=== PATIENT | female | born 1950 | race Caucasian/White ===

== ENCOUNTER → 2017-12-07 | Outpatient (CLI) | payer MEDICARE ==
[~2017-12-07] MED LIST: Acetaminophen1 EAC2 PO; Ambien5 MG PO; CALCAVITD PO; CRANBERRY250 MG PO; FISH1000 PO; GRAPE SEED 501 EACH PO; Milk Thistle175 MG PO; PROM25 PO; VENL37.5ER PO; Vitamin C1000 M1 PO; Vitamin E100 UNIT PO; ZOLP5 PO; [UNRECOGNIZED DRUG - REMARK]
== END | disposition home or self-care (01) ==
LOC: PLD 08:21 → LAB SHORT 08:21
DX: D04.5 Carcinoma in situ of skin of trunk (principal); D48.5 Neoplasm of uncertain behavior of skin
CPT/HCPCS: 88305

== ENCOUNTER → 2019-10-10 | Outpatient (CLI) | payer MEDICARE ==
[2019-10-12 15:07] LABS: HPV 16 Negative (Negative); HPV 18 Negative (Negative); HPV OTHER HR TYPES Negative (Negative)
== END | disposition home or self-care (01) ==
LOC: LAB SHORT 13:55 → LAB 13:55
PROVIDERS: Nurse Practitioner Women's Health
DX: Z12.4 Encounter for screening for malignant neoplasm of cervix (principal); R87.810 Cervical high risk human papillomavirus (HPV) DNA test positive; Z91.89 Other specified personal risk factors, not elsewhere classified
CPT/HCPCS: 87624; G0123

== ENCOUNTER 2020-09-24 11:21 | Day surgery (SDC) | payer MEDICARE ==
[~2020-09-24] VITALS: Ht 162.6 cm; Wt 73.9 kg
[2020-09-24] MEDS ORDERED: XARELTO20 MG (12:53)
[2020-09-24] MEDS ORDERED: TURMERIC ROOT5000 GM (12:54)
[2020-09-24] MEDS ORDERED: VENL150ER (12:57)
[2020-09-24] MEDS ORDERED: FURO20 (12:59)
[2020-09-24] MEDS ORDERED: PANT20 (12:59)
[2020-09-24] MEDS ORDERED: ATOR20 (12:59)
[2020-09-24] MEDS ORDERED: Lisinopril10 MG (12:59)
[2020-09-24] MEDS ORDERED: DILT30 (12:59)
[2020-09-24] MEDS ORDERED: Milk Thistle175 M1 (13:00)
[2020-09-24] MEDS ORDERED: BUPR75 (13:00)
[2020-09-24] MEDS ORDERED: FAMO10 (13:00)
[2020-09-24] MEDS ORDERED: MECL12.5 (13:00)
== END 2020-09-24 14:08 | disposition home or self-care (01) ==
LOC: ORSCSDS 11:21
PROVIDERS: Surgery
PROC: 0DBM8ZX Excision of Descending Colon, Via Natural or Artificial Opening Endoscopic, Diagnostic (ICD-10-PCS; principal; 2020-09-24 13:00)
DX: Z12.11 Encounter for screening for malignant neoplasm of colon (principal); Z86.010 Personal history of colon polyps; D12.4 Benign neoplasm of descending colon; K57.30 Diverticulosis of large intestine without perforation or abscess without bleeding; Z95.0 Presence of cardiac pacemaker; I10 Essential (primary) hypertension; E78.5 Hyperlipidemia, unspecified; Z79.01 Long term (current) use of anticoagulants; Z79.899 Other long term (current) drug therapy
CPT/HCPCS: 88305; J2704; J7120

== ENCOUNTER 2021-01-16 07:44 | Day surgery (SDC) | payer MEDICARE, SELFPAY ==
[~2021-01-16] VITALS: Ht 152.4 cm; Wt 84.4 kg
[~2021-01-16 07:44] MED LIST changes: +ATOR20; +ATORVASTATIN CA40 M1 PO; +BUPR150ER PO; +BUPR75; +CARTIA XT120 M1 PO; +CARTIA XT120 MG PO; +DILT30; +FAMO10; +FAMO20 PO; +FURO20; +FURO20 PO; +Lisinopril10 MG; +MECL12.5; +MECL25 PO; +Milk Thistle175 M1; +Milk Thistle175 M1 PO; +PANT20; +PANT20 PO; +Prinivil10 MG PO; +TURMERIC ROOT5000 GM; +VENL150ER; +VENL150ER PO; +VITAMIN D5000 UNIT PO; +XARELTO20 MG; +XARELTO20 MG PO
== END 2021-01-16 09:48 | disposition home or self-care (01) ==
LOC: ORSCSDS 07:44
PROVIDERS: Surgery
PROC: 0DB68ZX Excision of Stomach, Via Natural or Artificial Opening Endoscopic, Diagnostic (ICD-10-PCS; principal; 2021-01-16 09:00)
PROC: 0DB48ZX Excision of Esophagogastric Junction, Via Natural or Artificial Opening Endoscopic, Diagnostic (ICD-10-PCS; principal; 2021-01-16 09:00)
DX: K21.9 Gastro-esophageal reflux disease without esophagitis (principal); R10.11 Right upper quadrant pain; K44.9 Diaphragmatic hernia without obstruction or gangrene; E78.5 Hyperlipidemia, unspecified; I10 Essential (primary) hypertension; I48.0 Paroxysmal atrial fibrillation; E66.9 Obesity, unspecified; Z68.32 Body mass index [BMI] 32.0-32.9, adult; Z79.01 Long term (current) use of anticoagulants; Z79.899 Other long term (current) drug therapy
CPT/HCPCS: 88305; 88342; J2704; J7120

== ENCOUNTER → 2023-05-14 | Outpatient (CLI) | payer MEDICARE ==
[2023-05-14 15:44] LABS: BASOPHILS ABSOLUTE AUTO 0.04 K/mm3 (0.00-0.23); BASOPHILS PERCENT AUTO 1 % (0-2); EOSINOPHILS PERCENT AUTO 4 % (0-6); Hematocrit 39.3 % (33.0-51.0); Hemoglobin 13.6 g/dL (11.5-16.0); IMMATURE GRAN ABSOLUTE AUTO 0.01 K/mm3 (0.00-0.10); IMMATURE GRAN PERCENT AUTO 0 % (0-1); LYMPHOCYTES ABSOLUTE AUTO 1.74 K/mm3 (0.84-5.20); LYMPHOCYTES PERCENT AUTO 32 % (21-46); MONOCYTES ABSOLUTE AUTO 0.49 K/mm3 (0.16-1.47); MONOCYTES PERCENT AUTO 9 % (4-13); Mean Corpuscular HGB 30.4 pg (26.0-34.0); Mean Corpuscular HGB Conc 34.6 g/dL (31.5-36.5); Mean Corpuscular Volume 88 fL (80-100); Mean Platelet Volume 9.1 fL (9.1-12.4); NEUTROPHILS ABSOLUTE AUTO 2.95 K/mm3 (1.96-9.15); NEUTROPHILS PERCENT AUTO 54 % (41-73); Platelet Count 279 K/mm3 (150-400); RDW Coefficient Variation 13.5 % (11.7-14.2); RDW Standard Deviation 43.8 fL (35.1-46.3); Red Blood Cell Count 4.47 M/mm3 (3.80-5.20); White Blood Cell Count 5.43 K/mm3 (4.00-11.30)
[2023-05-14 15:55] LABS: Albumin, Blood 3.8 g/dL (3.4-5.0); Bilirubin, Total 0.2 mg/dL (0.1-1.0); Bun/Creatinine Ratio 19.5 (12.0-20.0); Calcium, Blood 9.5 mg/dL (8.5-10.1); Creatinine, Blood 1.33 mg/dL (0.40-1.00); Globulin, Blood 3.7 g/dL (2.2-4.0); Potassium, Blood 4.3 mmol/L (3.5-5.5); Total Protein, Blood 7.5 g/dL (6.4-8.2)
== END | disposition home or self-care (01) ==
LOC: LAB SHORT 15:39 → LAB 15:39
PROVIDERS: Chiropractor
DX: I48.91 Unspecified atrial fibrillation (principal)
CPT/HCPCS: 80053; 83880; 84484; 85025

== ENCOUNTER 2024-11-23 18:43 | Emergency (ER) | payer MEDICARE ==
[~2024-11-23] VITALS: Ht 162.6 cm; Wt 78.0 kg
[2024-11-23 18:56] VITALS: BP 109/81
== END 2024-11-23 22:53 | disposition home or self-care (01) ==
LOC: ER 18:43
DX: R06.02 Shortness of breath (principal); I10 Essential (primary) hypertension; K21.9 Gastro-esophageal reflux disease without esophagitis; Z95.0 Presence of cardiac pacemaker; Z88.8 Allergy status to other drugs, medicaments and biological substances; Z91.048 Other nonmedicinal substance allergy status; Z79.01 Long term (current) use of anticoagulants; Z79.899 Other long term (current) drug therapy
CPT/HCPCS: 71260; 80053; 83880; 84484; 85025; 85379; 93005; 93010; 99283-25; Q9967

== ENCOUNTER → 2024-11-23 | Outpatient (CLI) | payer MEDICARE ==
[2024-11-23 17:25] LABS: BASOPHILS ABSOLUTE AUTO 0.05 K/mm3 (0.00-0.23); BASOPHILS PERCENT AUTO 1 % (0-2); EOSINOPHILS ABSOLUTE AUTO 0.16 K/mm3 (0.00-0.68); EOSINOPHILS PERCENT AUTO 2 % (0-6); Hematocrit 37.1 % (33.0-51.0); Hemoglobin 11.5 g/dL (11.5-16.0); IMMATURE GRAN ABSOLUTE AUTO 0.01 K/mm3 (0.00-0.10); IMMATURE GRAN PERCENT AUTO 0 % (0-1); LYMPHOCYTES PERCENT AUTO 24 % (21-46); MONOCYTES ABSOLUTE AUTO 0.46 K/mm3 (0.16-1.47); MONOCYTES PERCENT AUTO 7 % (4-13); Mean Corpuscular HGB 23.2 pg (26.0-34.0); Mean Corpuscular Volume 75 fL (80-100); Mean Platelet Volume 8.9 fL (9.1-12.4); NEUTROPHILS ABSOLUTE AUTO 4.31 K/mm3 (1.96-9.15); NEUTROPHILS PERCENT AUTO 65 % (41-73); Platelet Count 339 K/mm3 (150-400); RDW Coefficient Variation 15.9 % (11.7-14.2); RDW Standard Deviation 42.7 fL (35.1-46.3); Red Blood Cell Count 4.95 M/mm3 (3.80-5.20); White Blood Cell Count 6.59 K/mm3 (4.00-11.30)
[2024-11-23 17:34] LABS: Albumin, Blood 3.6 g/dL (3.4-5.0); Albumin/Globulin Ratio 0.9 (0.8-1.8); Bilirubin, Total 0.2 mg/dL (0.1-1.0); Bun/Creatinine Ratio 16.2 (12.0-20.0); Calcium, Blood 9.5 mg/dL (8.5-10.1); Creatinine, Blood 1.85 mg/dL (0.40-1.00); Potassium, Blood 3.9 mmol/L (3.5-5.5); Total Protein, Blood 7.6 g/dL (6.4-8.2)
== END | disposition home or self-care (01) ==
LOC: LAB 17:18 → LAB SHORT 17:18
PROVIDERS: Emergency Medicine
DX: R06.02 Shortness of breath (principal)
CPT/HCPCS: 80053; 83880; 84484; 85025; 85379

== ENCOUNTER 2025-05-16 09:22 | Day surgery (SDC) | payer MEDICARE ==
[~2025-05-16] VITALS: Ht 162.6 cm; Wt 83.5 kg
[2025-05-16] MEDS ORDERED: Midazolam HCl 1MG / ML 2ML Vial ONE ×3 (09:47→12:10)
[2025-05-16] MEDS ORDERED: Loratadine10 MG PO (10:07)
[2025-05-16] MEDS ORDERED: BRINTELLIX10 MG PO (10:07)
[2025-05-16] MEDS ORDERED: FARXIGA10 MG PO (10:08)
--- NOTE | 2025-05-16 11:22 | NUR ---
05/16/25 1122 NOÉ STERLING PT UP TO RUST W/ RN SBA
[2025-05-16 13:07] VITALS: BP 101/65
--- NOTE | 2025-05-16 13:50 | NUR ---
05/16/25 1350 Kishor Johns PT DENIES PAIN AND NAUSEA AT THIS TIME. PT AGREEABLE TO D/C HOME WITH FRIEND JEWEL.
== END 2025-05-16 13:49 | disposition home or self-care (01) ==
LOC: ORSCSDS 09:22
PROVIDERS: Orthopaedic Surgery
PROC: 01N54ZZ Release Median Nerve, Percutaneous Endoscopic Approach (ICD-10-PCS; principal; 2025-05-16 11:30)
DX: G56.01 Carpal tunnel syndrome, right upper limb (principal); I48.91 Unspecified atrial fibrillation; G47.33 Obstructive sleep apnea (adult) (pediatric); Z95.0 Presence of cardiac pacemaker; I10 Essential (primary) hypertension; E66.9 Obesity, unspecified; Z68.31 Body mass index [BMI] 31.0-31.9, adult; Z79.01 Long term (current) use of anticoagulants; Z79.899 Other long term (current) drug therapy
CPT/HCPCS: J2250; J2704